=== PATIENT | male | born 1975 | race African-American/Black ===

== ENCOUNTER 2021-05-10 19:43 | Emergency (ER) | payer OTHER ==
[2021-05-10] MEDS ORDERED: Ketorolac Tromethamine 30 MG/ML VIAL ONE (22:23)
[2021-05-10] MEDS ORDERED: Acetaminophen 500 MG TAB ONE (23:16)
[2021-05-10 23:53] LABS: Bacteria/HPF None Seen HPF (None Seen); Bilirubin Negative (Negative); Blood, Urine Negative (Negative); Clarity Clear (Clear); Glucose, Urine (Dipstick) Normal (Negative); Ketone, Urine Trace mg/dL (Negative); Leukocyte Negative Leu/uL (Negative); Nitrite Negative (Negative); Protein, Urine (Dipstick) 30 mg/dL (Neg-Trace); RBC/HPF 0-3 HPF (0-3); Specific Gravity, Urine 1.033 (1.002-1.036); Squamous Epithelial 0-3 HPF (0-3); pH, Urine 5.5 (5.0-9.0)
== END 2021-05-11 00:29 | disposition home or self-care (01) ==
LOC: ERS 19:43
DX: S39.012A Strain of muscle, fascia and tendon of lower back, initial encounter (principal); F17.210 Nicotine dependence, cigarettes, uncomplicated; X58.XXXA Exposure to other specified factors, initial encounter; Z87.442 Personal history of urinary calculi
CPT/HCPCS: 81003; 81015; 96372; 99283; J1885

== ENCOUNTER 2022-06-02 13:23 | Emergency (ER) | payer BC, OTHER, SELFPAY ==
[2022-06-02] MEDS ORDERED: Ketorolac Tromethamine 30 MG/ML VIAL ONE (15:47)
== END 2022-06-02 17:24 | disposition home or self-care (01) ==
LOC: ERS 13:23
DX: R51.9 Headache, unspecified (principal); F17.210 Nicotine dependence, cigarettes, uncomplicated
CPT/HCPCS: 96372; 99283; J1885